=== PATIENT | male | born 1965 | race Caucasian/White ===

== ENCOUNTER 2018-01-14 01:48 | Emergency (ER) | payer MEDICAID ==
[~2018-01-14] VITALS: Ht 177.8 cm; Wt 84.4 kg
[~2018-01-14 01:48] MED LIST: ALB0.5V IH; AZIT250T12 PO; AZIT500T PO; METH4TAB10 PO; METO-387 PO; NICO-588 TD; PARO10TA3 PO; PRD10T PO; RT-ALBUINH PO
[2018-01-14] MEDS ORDERED: THIAMINE INJECTION 100 MG, FOLIC ACID INJECTION 1 MG, VITAMIN MULTI INJECTION 10 ML, MA... IV STA ×5 (02:14)
[2018-01-14] MEDS ORDERED: THIAMINE 100 MG/ML 2 ML (VITAMIN B-1) VIAL ONE (02:23)
[2018-01-14] MEDS ORDERED: D5 1/2 NS W/KCL 20 MEQ/L 0 ML IV ONE (02:23)
[2018-01-14] MEDS ORDERED: FOLIC ACID 1 MG/0.2 ML SYR (ED) ONE (02:23)
[2018-01-14] MEDS ORDERED: MAGNESIUM SULFATE 1 GM/2 ML VIAL ONE (02:23)
--- NOTE | 2018-01-14 02:23 | ED Psychosocial ---
General Chief Complaint: Abdominal/GI Problems Stated Complaint: AB PAIN Nursing Triage Note: patient reports hit 'liver' is hurting and he is an alcoholic and ready for detox Source: patient Exam Limitations: no limitations History of Present Illness Date Seen by Provider: Jan 14, 2018 Time Seen by Provider: 02:10 Initial Comments Patient presents to the ER by private conveyance with a chief complaint of he desires to detox. He also has right upper quadrant abdominal pain tonight. He says he sick of the drinking and wants to quit. He says he finished his last beer and threw it in the trash on his way into the ER about 10 minutes ago. He says he drinks on average 15 beers and 10 shots a night. He says he has detoxed before the last time being unknown and lasting upwards of 6 months. He says he has detoxed here this hospital. He does not have a primary care provider. He is not having any shakes, slurred speech, nausea, vomiting or diarrhea. Denies fever or chills. He is a poor historian. On this examiner's way out the door he states that he could probably provide a urine sample if I would go out to his truck and get him a beer. Allergies and Home Medications Allergies Coded Allergies: No Known Drug Allergies (Unverified , 05/11/16) Home Medications Albuterol Sulfate 8.5 Gm Hfa.aer.ad, 2 PUFF PO Q4H PRN for SHORTNESS OF BREATH, (Reported) Metoprolol Succinate 25 Mg Tab.er.24h, 25 MG PO DAILY Prescribed by: GAB VASQUEZ on 05/16/16 1330 Nicotine 1 Each Patch.td24, 21 MG TD DAILY Prescribed by: GAB VASQUEZ on 05/16/16 1327 Paroxetine HCl 10 Mg Tablet, 10 MG PO DAILY Prescribed by: REBEKAH FORD on 05/16/16 1057 Patient Home Medication List Home Medication List Reviewed: Yes Constitutional: No chills, No diaphoresis EENTM: No ear pain, No eye pain Respiratory: No cough, No short of breath Cardiovascular: No chest pain, No edema Gastrointestinal: No abdominal pain, No constipation, No nausea, No vomiting Genitourinary: No discharge, No dysuria Musculoskeletal: No back pain, No joint pain Skin: No pruritus, No rash Psychiatric/Neurological: Denies Headache, Denies Numbness, Denies Paresthesia Past Pswaobu-[id number]-Uoxmyk Hx Patient Social History Alcohol Use: Regular Use Number of Drinks Today: AA Alcohol Beverage of Choice: Beer (15 a day), Whiskey (10 a day) Recreational Drug Use: Yes Type Used: Cigarettes Recent Foreign Travel: No Contact w/Someone Who Travel: No Recent Infectious Disease Expo: No Recent Hopitalizations: No Physical Abuse: No Sexual Abuse: No Immunizations Up To Date Tetanus Booster (TDap): Unknown PED Vaccines UTD: No Seasonal Allergies Seasonal Allergies: No Past Medical History Surgeries: Yes (hernia repair as an ) Respiratory: Yes Currently Using CPAP: No Currently Using BIPAP: No Cardiac: No Neurological: No Reproductive Disorders: No Sexually Transmitted Disease: No HIV/AIDS: No Gastrointestinal: No Musculoskeletal: No Endocrine: No Cancer: No Psychosocial: No Nursing Suicide Risk Score: 0 Integumentary: No Blood Disorders: No Adverse Reaction/Blood Tranf: No Physical Exam Vital Signs Vital Signs - First Documented 01/14/18 01:52 Temp 98.7 Pulse 129 Resp 18 B/P (MAP) 133/104 (114) Pulse Ox 97 Capillary Refill : Less Than 3 Seconds General Appearance: WD/WN, no apparent distress HEENT: PERRL/EOMI, pharynx normal Neck: non-tender, full range of motion, supple, normal inspection Respiratory: chest non-tender, lungs clear, normal breath sounds, no respiratory distress, no accessory muscle use Cardiovascular: normal peripheral pulses, regular rate, rhythm, no edema Peripheral Pulses: 2+ Radial Pulses (R), 2+ Radial Pulses (L) Gastrointestinal: normal bowel sounds, guarding (right upper quadrant), tenderness (right upper quadrant unable to perform a Nieto's test as the patient refuses further examination.), other (bladder palpable above the pubis symphysis.) Extremities: no pedal edema, normal capillary refill Neurologic/Psychiatric: alert, normal mood/affect, oriented x 3 Behavior/Eye Contact: cooperative, good eye contact, normal speech Thoughts/Hallucinations: no apparent hallucination; No incoherent Skin: normal color, warm/dry Progress/Results/Core Measures Lab Results Laboratory Tests Test 01/14/18 01:35 01/14/18 04:10 Range/Units White Blood Count 5.8 4.3-11.0 10^3/uL Red Blood Count 4.36 4.35-5.85 10^6/uL Hemoglobin 14.5 13.3-17.7 G/DL Hematocrit 40 40-54 % Mean Corpuscular Volume 91 80-99 FL Mean Corpuscular Hemoglobin 33 25-34 PG Mean Corpuscular Hemoglobin Concent 37 H 32-36 G/DL Red Cell Distribution Width 13.1 10.0-14.5 % Platelet Count 167 130-400 10^3/uL Mean Platelet Volume 9.9 7.4-10.4 FL Neutrophils (%) (Auto) 41 L 42-75 % Lymphocytes (%) (Auto) 47 H 12-44 % Monocytes (%) (Auto) 10 0-12 % Eosinophils (%) (Auto) 2 0-10 % Basophils (%) (Auto) 1 0-10 % Neutrophils # (Auto) 2.3 1.8-7.8 X 10^3 Lymphocytes # (Auto) 2.7 1.0-4.0 X 10^3 Monocytes # (Auto) 0.6 0.0-1.0 X 10^3 Eosinophils # (Auto) 0.1 0.0-0.3 10^3/uL Basophils # (Auto) 0.0 0.0-0.1 10^3/uL Sodium Level 125 *L 135-145 MMOL/L Potassium Level 3.9 3.6-5.0 MMOL/L Chloride Level 93 L 98-107 MMOL/L Carbon Dioxide Level 17 L 21-32 MMOL/L Anion Gap 15 H 5-14 MMOL/L Blood Urea Nitrogen 3 L 7-18 MG/DL Creatinine 0.61 0.60-1.30 MG/DL Estimat Glomerular Filtration Rate > 60 BUN/Creatinine Ratio 5 Glucose Level 110 H 70-105 MG/DL Calcium Level 8.1 L 8.5-10.1 MG/DL Magnesium Level 2.1 1.8-2.4 MG/DL Total Bilirubin 0.9 0.1-1.0 MG/DL Aspartate Amino Transf (AST/SGOT) 92 H 5-34 U/L Alanine Aminotransferase (ALT/SGPT) 42 0-55 U/L Alkaline Phosphatase 137 H 40-136 U/L Total Protein 6.5 6.4-8.2 GM/DL Albumin 3.5 3.2-4.5 GM/DL Serum Alcohol 353 *H <10 MG/DL Urine Color YELLOW Urine Clarity CLEAR Urine pH 6 5-9 Urine Specific Kinney 1.010 L 1.016-1.022 Urine Protein NEGATIVE NEGATIVE Urine Glucose (UA) NEGATIVE NEGATIVE Urine Ketones 2+ H NEGATIVE Urine Nitrite NEGATIVE NEGATIVE Urine Bilirubin NEGATIVE NEGATIVE Urine Urobilinogen NORMAL NORMAL MG/DL Urine Leukocyte Esterase NEGATIVE NEGATIVE Urine RBC (Auto) NEGATIVE NEGATIVE Urine RBC NONE /HPF Urine WBC NONE /HPF Urine Squamous Epithelial Cells RARE /HPF Urine Crystals NONE /LPF Urine Bacteria NEGATIVE /HPF Urine Casts NONE /LPF Urine Mucus NEGATIVE /LPF Urine Culture Indicated NO My Orders Orders - FEDERICA GARCÍA Saline Lock/Iv-Start (01/14/18 02:14) Alcohol (01/14/18 02:14) Cbc With Automated Diff (01/14/18 02:14) Comprehensive Metabolic Panel (01/14/18 02:14) Drug Screen Stat (Urine) (01/14/18 02:14) Magnesium (01/14/18 02:14) Ua Culture If Indicated (01/14/18 02:14) Saline Lock/Iv-Start (01/14/18 02:14) Thiamine Injection (Vitamin B-1 Injectio (01/14/18 02:14) Magnesium Sulfate Inj (Magnesium Sulfate (01/14/18 02:23) Folic Acid Syr (Ed) (Folic Acid Syr (Ed) (01/14/18 02:23) Thiamine Injection (Vitamin B-1 Injectio (01/14/18 02:23) D5 1/2 Ns W/Kcl 20 Meq/L (Dextrose 5%/0. (01/14/18 02:23) Vitamin Multi Injection (Mvi 12 Injectio (01/14/18 02:24) Ns Iv 1000 Ml (Sodium Chloride 0.9%) (01/14/18 02:25) Iohexol Injection (Omnipaque 350 Mg/Ml 1 (01/14/18 03:30) Ns (Ivpb) (Sodium Chloride 0.9%) (01/14/18 03:30) Ct Abdomen/Pelvis Wo (01/14/18 02:14) Medications Given in ED Current Medications Medications Dose Ordered Sig/Viola Route Start Time Stop Time Status Last Admin Dose Admin Folic Acid 1 mg STK-MED ONCE .ROUTE 01/14/18 02:23 01/14/18 02:28 DC 01/14/18 02:41 1 MG Magnesium Sulfate 1 gm STK-MED ONCE .ROUTE 01/14/18 02:23 01/14/18 02:28 DC 01/14/18 02:40 2 GM Multivitamins 10 ml STK-MED ONCE IV 01/14/18 02:24 01/14/18 02:29 DC 01/14/18 02:41 10 ML Sodium Chloride 1,000 ml @ ud STK-MED ONCE .ROUTE 01/14/18 02:25 01/14/18 02:30 DC 01/14/18 02:39 0 MLS/HR Thiamine HCl 200 mg STK-MED ONCE .ROUTE 01/14/18 02:23 01/14/18 02:29 DC 01/14/18 02:40 100 MG Vital Signs/I&O 01/14/18 01:52 Temp 98.7 Pulse 129 Resp 18 B/P (MAP) 133/104 (114) Pulse Ox 97 Blood Pressure Mean: 114 Progress Note #1: Time: 02:21 Progress Note Banana bag with KCl. We will attempt to workup his upper quadrant abdominal pain. He is within 10 minutes of his last drink and is unlikely to enter DTs tonight. One we have concluded her workup if we do not find a medical reason to hold onto him we will explain to him how best to get help working on his alcohol by contacting [facility] Monday or going to the [facility] at [place]. Progress Note #2: Time: 04:24 Progress Note The patient's laboratory exam and urinalysis are unremarkable except for his hyponatremia which has seen all the way back in 2016 is probably chronic given his alcohol dependence. He is mentating well and oriented to person place and more or less time. His abdomen does not show any acute abnormalities. We have discussed appropriate workup of his cirrhotic liver outpatient with a GI specialist. He has been resting in no significant pain requiring any medicines since he came here. He is in no imminent danger of detoxing tonight since he was drinking just before presenting to the ER. We'll recommend he follow up with the [place] alcohol treatment center or present to [facility] for their outpatient addiction treatment program. CIWA less than 10 Diagonstic Imaging: CT (with) Plain Films/CT/US/NM/MRI: abdomen, pelvis Comments Cirrhotic liver with steatosis. Markedly distended urinary bladder. Reviewed: Reviewed by Me Consults : Consulting Physician: TONI MORALES MD Consults Notes Discussed the case lab imaging and findings and lack of any acute medical findings requiring inpatient hospitalization. Dr. Morales is okay with the plan for the patient following up with [facility]'s outpatient drug and alcohol addiction program. Departure Impression Primary Impression: Hyponatremia Additional Impression: Alcohol dependence Qualified Codes: F10.220 - Alcohol dependence with intoxication, uncomplicated Disposition: 01 HOME, SELF-CARE Condition: Stable Departure-Patient Inst. Decision time for Depature: 04:29 Referrals: NO,LOCAL PHYSICIAN (PCP/Family) Primary Care Physician Patient Instructions: Alcohol Abuse and Alcoholism (DC), Alcohol Withdrawal Add. Discharge Instructions: I highly encourage you to quit drinking. He would be much safer for you to quit drinking and a structured program supervised by a physician such as [facility]'s outpatient alcohol addiction treatment program. You can reach [facility] Monday tomorrow morning at [phone] and ask about their program. All other local program to be the [facility] program which can be contacted at [phone]. All discharge instructions reviewed with patient and/or family. Voiced understanding. Copy Copies To 1: SALAS FOUNTAIN TITUS J Jan 14, 2018 02:23
[2018-01-14] MEDS ORDERED: VITAMIN MULTI- 12 INJECTION 10 ML VIAL IV ONE (02:24)
[2018-01-14] MEDS ORDERED: NS IV 1000 ML 1,000 ML ONE (02:25)
[2018-01-14 02:54] LABS: BASOPHILS % (AUTO) 1 % (0-10); EOSINOPHILS # (AUTO) 0.1 10^3/uL (0.0-0.3); EOSINOPHILS % (AUTO) 2 % (0-10); HEMATOCRIT 40 % (40-54); HEMOGLOBIN 14.5 G/DL (13.3-17.7); LYMPHOCYTES # (AUTO) 2.7 X 10^3 (1.0-4.0); LYMPHOCYTES % (AUTO) 47 % (12-44); MEAN CORPUSCULAR HEMOGLOBIN 33 PG (25-34); MEAN CORPUSCULAR HGB CONC 37 G/DL (32-36); MEAN CORPUSCULAR VOLUME 91 FL (80-99); MEAN PLATELET VOLUME 9.9 FL (7.4-10.4); MONOCYTES # (AUTO) 0.6 X 10^3 (0.0-1.0); MONOCYTES % (AUTO) 10 % (0-12); NEUTROPHILS # (AUTO) 2.3 X 10^3 (1.8-7.8); NEUTROPHILS % (AUTO) 41 % (42-75); PLATELET COUNT 167 10^3/uL (130-400); RED BLOOD COUNT 4.36 10^6/uL (4.35-5.85); RED CELL DISTRIBUTION WIDTH 13.1 % (10.0-14.5); WHITE BLOOD COUNT 5.8 10^3/uL (4.3-11.0)
[2018-01-14 03:13] LABS: ALANINE AMINOTRANSFERASE 42 U/L (0-55); ALBUMIN 3.5 GM/DL (3.2-4.5); ALKALINE PHOSPHATASE 137 U/L (40-136); BILIRUBIN,TOTAL 0.9 MG/DL (0.1-1.0); BUN/CREATININE RATIO 5; CALCIUM 8.1 MG/DL (8.5-10.1); CARBON DIOXIDE 17 MMOL/L (21-32); CHLORIDE 93 MMOL/L (98-107); CREATININE SERUM 0.61 MG/DL (0.60-1.30); GFR ESTIMATED > 60; GLUCOSE 110 MG/DL (70-105); MAGNESIUM 2.1 MG/DL (1.8-2.4); POTASSIUM 3.9 MMOL/L (3.6-5.0); TOTAL PROTEIN 6.5 GM/DL (6.4-8.2)
[2018-01-14 03:16] LABS: SODIUM 125 MMOL/L (135-145)
[2018-01-14] MEDS ORDERED: IOHEXOL 350 MG/ML 100 ML (OMNIPAQUE 350) VIAL IV ONE (03:30)
[2018-01-14] MEDS ORDERED: NS 250 ML (IVPB) BAG IV ONE (03:30)
[2018-01-14 04:17] LABS: BILIRUBIN,URINE NEGATIVE (NEGATIVE); CLARITY,URINE CLEAR; COLOR,URINE YELLOW; GLUCOSE, URINE (UA) NEGATIVE (NEGATIVE); KETONES,URINE 2+ (NEGATIVE); LEUKOCYTE ESTERASE ,URINE NEGATIVE (NEGATIVE); NITRITE,URINE NEGATIVE (NEGATIVE); PH,URINE 6 (5-9); PROTEIN,URINE NEGATIVE (NEGATIVE); UROBILINOGEN,URINE NORMAL (NORMAL)
[2018-01-14 04:22] LABS: BACTERIA,URINE NEGATIVE /HPF; SQUAMOUS EPITHELIAL CELL,UR RARE /HPF
[2018-01-14 04:27] LABS: AMPHETAMINE SCREEN, URINE NEGATIVE (NEGATIVE); BARBITURATE SCREEN URINE NEGATIVE (NEGATIVE); BENZODIAZEPINES SCREEN URINE NEGATIVE (NEGATIVE); CANNABINOID SCREEN, URINE NEGATIVE (NEGATIVE); COCAINE SCREEN URINE NEGATIVE (NEGATIVE); METHADONE STAT NEGATIVE (NEGATIVE); METHAMPHETAMINE SCREEN URINE S NEGATIVE (NEGATIVE); OPIATE SCREEN URINE NEGATIVE (NEGATIVE); OXYCODONE STAT NEGATIVE (NEGATIVE); PROPOXYPHENE STAT NEGATIVE (NEGATIVE); TRICYCLIC ANTIDEPRESSANTS SCRE NEGATIVE (NEGATIVE)
[2018-01-14 04:47] VITALS: BP 133/83
--- NOTE | 2018-01-14 07:19 | Diagnostic Imaging Report ---
PROCEDURE: CT abdomen and pelvis without contrast. TECHNIQUE: Multiple contiguous axial images were obtained through the abdomen and pelvis without the use of intravenous contrast. INDICATION: Abdominal pain. COMPARISON: There are no prior studies available for comparison. FINDINGS: There are a number of small nodes about the celiac axis, the superior mesenteric artery and the proximal abdominal aorta. The largest of these nodes measure approximately 1 cm. There is some distortion of the mesenteric fat about the nodes as well and this does suggest edema/inflammation. The etiology of the nodes is not certain. The possible mesenteric adenitis should be considered. The liver is of lower density than usually seen. This does suggest fatty metamorphosis. There is no focal mass involving the liver and the biliary tree is not abnormally dilated. The gallbladder, the spleen, the pancreas, the adrenals, the kidneys, the aorta and inferior vena cava show no sign of an acute abnormality. There is marked distention of the urinary bladder. The bladder measures almost 20 cm in length. The prostate gland is not enlarged and the reason for the distention of the urinary bladder is not certain. Consideration should be given to the insertion of a Fagan catheter to decompress the bladder. The appendix was visualized and is not abnormally thickened. There is no pelvic mass or free fluid collection noted. The lung bases are clear. The bone windows show no sign of a fracture or destructive lesion. There are severe degenerative disc and bony disease at L5-S1 however. IMPRESSION: 1. There are a number of small nodes about the celiac axis, superior mesenteric artery and the proximal aorta. These nodes are nonspecific but could be related to mesenteric adenitis. Clinical followup is recommended. 2. There is also marked distention of the urinary bladder. Consideration should be given to the insertion of a catheter to decompress the bladder. 3. There is no acute abnormality of the abdomen or pelvis noted otherwise. Dictated by: Dictated on workstation # [id number]
== END 2018-01-14 04:49 | disposition home or self-care (01) ==
LOC: EDUNIT# 01:48 → ER 01:50
DX: E87.1 Hypo-osmolality and hyponatremia (principal); F10.20 Alcohol dependence, uncomplicated; Z79.51 Long term (current) use of inhaled steroids; Z87.19 Personal history of other diseases of the digestive system
CPT/HCPCS: 36415; 74176; 80053; 80306; 80320; 81000; 83735; 85025; 96361; 96374; 96375